=== PATIENT | male | born 1945 | race Caucasian/White ===

== ENCOUNTER 2019-04-25 13:49 | Emergency (ER) | payer MEDICARE, SELFPAY ==
[2019-04-25 13:52] VITALS: BP 137/71; PULSE 73; RESP 18; TEMP 36.4; O2SAT 96
--- NOTE | 2019-04-25 17:14 | DI.US.S_ITS ---
PROCEDURE: US PERIPH VENOUS UP EXTREM RT INDICATIONS: ATRAUMATIC PAIN RIGHT UPPER ARM TECHNIQUE: Real-time imaging, as well as color and pulse Doppler interrogation, was performed of the right upper extremity deep veins from the inferior neck to the antecubital fossa. COMPARISON: None. FINDINGS: The internal jugular vein, visualized portions of the subclavian vein, axillary, and brachial veins are free of intraluminal thrombus. Where physically possible, the veins are normally compressible. Color and pulse Doppler demonstrate normal intraluminal flow, with expected phasicity and pulsatility. Additional scanning of the cephalic and basilic veins of the superficial system demonstrate normal compressibility, without thrombus. 4 x 1.1 x 3 cm echogenic area is seen in right upper arm subcutaneous soft tissue corresponding to patient's reported area of pain and palpable lump. IMPRESSION: 1. No evidence of DVT in visualized right upper extremity veins. 2. Finding is suggestive of a 4 x 1.1 x 3 cm lipoma in right upper arm at patient's reported area of pain and palpable lump. Dictated by: Jett Alvarez M.D. on 04/25/2019 at 18:03 Approved by: Jett Alvarez M.D. on 04/25/2019 at 18:04
[2019-04-25 17:36] LABS: Add Manual Diff / Slide Review NO; Basophils Absolute Auto 0 /uL (0-100); Basophils Percent Auto 0.4 % (0-2); Eosinophils Absolute Auto 200 /uL (0-450); Eosinophils Percent Auto 3.5 % (2-4); Hematocrit 42.7 % (41-53); Hemoglobin 14.5 g/dL (13.5-17.5); Lymphocytes Absolute Auto 1400 /uL (1100-4500); Lymphocytes Percent Auto 19.4 % (25-40); Mean Corpuscular HGB Conc 33.9 % (30-36); Mean Corpuscular Hemoglobin 30.8 PG (26-34); Monocytes Absolute Auto 600 /uL (0-900); Monocytes Percent Auto 8.1 % (3-14); Neutrophils Absolute Auto 4800 /uL (1500-7000); Neutrophils Percent Auto 68.6 % (50-75); Platelet Count 190 X10^3/uL (150-400); Red Blood Cell Count 4.69 X10^6/uL (4.5-5.9); Red Cell Distribution Width 13.8 % (11.6-14.8)
[2019-04-25 17:44] LABS: Prothrombin Time 11.3 SECONDS (10.1-12.7)
[2019-04-25 17:47] LABS: Alanine Aminotransferase 24 IU/L (21-72); Albumin 4.6 g/dL (3.5-5.0); Albumin Globulin Ratio 1.5 (1.0-2.8); Alkaline Phosphatase 60 U/L (38-126); Aspartate Aminotransferase 27 IU/L (17-59); Bilirubin Total 0.4 mg/dL (0.2-1.3); Blood Urea Nitrogen 18 mg/dL (9-20); Calcium 9.4 mg/dL (8.4-10.2); Carbon Dioxide 30 mmol/L (22-32); Chloride 102 mmol/L (98-107); Creatine Kinase 68 U/L (55-170); Estimated Glomerular Filt Rate > 60.0 mL/min (>60); Globulin 3.1 g/dL (1.7-4.1); Glucose 106 mg/dL (80-110); HEMOLYSIS < 15 (0-50); PTT Partial Thromboplastin Tim 31 SECONDS (26.4-36.2); Potassium 3.7 mmol/L (3.4-5.1); Sodium 141 mmol/L (137-145); Total Protein 7.7 g/dL (6.3-8.2)
--- NOTE | 2019-04-25 18:47 | ED_ITS ---
HPI - Extremity Problem <NANNETTE Barnes - Last Filed: 04/25/19 18:55> General Chief complaint: Extremity Problem,Nontraumatic Stated complaint: severe right arm pain x3 weeks Time Seen by Provider: 04/25/19 17:09 Source: patient and family Mode of arrival: ambulatory Limitations: no limitations History of Present Illness HPI Narrative: The patient is a 74-year-old male with history of hypercholesterolemia and hypertension who presents with chief complaint of right arm pain. Denies any trauma. He states that he was on amlodipine for 1 week, which prompted the start of his right upper arm pain. He has taken Tylenol home. He has not applied ice or heat. He denies any trauma. Denies any numbness or tingling. States he has good strength in his hand. Related Data Home Medications Medication Instructions Recorded Confirmed simvastatin 10 mg tablet 10 mg PO BEDTIME 10/06/18 10/06/18 Previous Rx's Medication Instructions Recorded ketorolac 10 mg PO Q4-6H PRN 2 Days #8 tab 04/25/19 Allergies Allergy/AdvReac Type Severity Reaction Status Date / Time No Known Drug Allergies Allergy Verified 10/06/18 13:23 Review of Systems <NANNETTE Barnes - Last Filed: 04/25/19 18:55> Review of Systems GENERAL: Denies chills, fatigue, malaise, fever, sweats. HEENT: Denies sinus pain, ear pain, sore throat, difficulty swallowing, dizziness. RESPIRATORY: Denies dyspnea, cough, wheezing, hemoptysis, sputum. CARDIOVASCULAR: Denies chest pain, palpitations, orthopnea, edema, GASTROINTESTINAL: Denies nausea, vomiting, abdominal pain, diarrhea, constipation, melena. : Denies dysuria, frequency, incontinence, hematuria, urinary retention. MUSCULOSKELETAL: See HPI SKIN: Denies rash, skin lesions, or other NEUROLOGIC: Denies weakness, headache, numbness, change in speech, confusion, seizures, incoordination. PSYCHIATRIC: No concerning psychosocial issues. 12 point review of systems is negative except for those stated above PFSH <NANNETTE Barnes - Last Filed: 04/25/19 18:55> Medical History (Updated 04/25/19 @ 18:53 by Sophie Labette, [employer]IOR [employer]ICER[employer]) Hypertension (Acute) Social History Smoking Status: Never smoker Social History Smoking Status: Never smoker Exam <NANNETTE Barnes - Last Filed: 04/25/19 18:55> Narrative Exam Narrative: GENERAL: This is a well-nourished, well-developed patient, in no acute distress HEAD: Atraumatic. Normocephalic. No temporal or scalp tenderness. EYES: Pupils equal round and reactive. Extraocular motions intact. No scleral icterus. No injection or drainage. ENT: Nose without bleeding, purulent drainage or septal hematoma. Throat without erythema, tonsillar hypertrophy or exudate. Uvula midline. Airway patent. NECK: Trachea midline. No JVD or lymphadenopathy. Supple, nontender, no meningeal signs. CARDIOVASCULAR: Regular rate and rhythm RESPIRATORY: No cough. No increased respiratory effort. No accessory muscle use. EXTREMITIES: Dental pain to palpation right upper arm. Full range of motion noted bilateral shoulders. Positive radial pulses bilaterally. BACK: Nontender without deformity or crepitance. No flank tenderness. NEURO: AOx3. SKIN: No rash or erythema. No erythema ecchymosis laceration contusion etc right upper arm Initial Vital Signs Initial Vital Signs: Vital Signs Temperature 97.6 F 04/25/19 13:52 Pulse Rate 73 04/25/19 13:52 Respiratory Rate 18 04/25/19 13:52 Blood Pressure 137/71 04/25/19 13:52 Pulse Oximetry 96 04/25/19 13:52 <Sophie Sandhu DO - Last Filed: 04/25/19 19:36> Initial Vital Signs Initial Vital Signs: Vital Signs Temperature 97.6 F 04/25/19 13:52 Pulse Rate 73 04/25/19 13:52 Respiratory Rate 18 04/25/19 13:52 Blood Pressure 137/71 04/25/19 13:52 Pulse Oximetry 96 04/25/19 13:52 Course <NANNETTE Barnes - Last Filed: 04/25/19 18:55> Orders Ordered: ED Orders 04/25/19 17:14 US periph venous up extrem rt Stat 04/25/19 17:30 CKMB Panel (CK + CKMB) Stat Complete Blood Count AUTO DIFF Stat Comprehensive Metabolic Panel Stat Partial Thromboplastin Time Stat Prothrombin Time INR Stat Discontinued Medications Ketorolac Tromethamine (Toradol) 60 mg IM NOW ONE Stop: 04/25/19 18:30 Last Admin: 04/25/19 18:48 Dose: 60 mg Vital Signs - 8 hr 04/25/19 13:52 04/25/19 18:52 Temperature 97.6 F Pulse Rate 73 61 Respiratory Rate 18 18 Blood Pressure 137/71 Blood Pressure [Left Arm] 159/78 H Pulse Oximetry 96 98 <Sophie Sandhu DO - Last Filed: 04/25/19 19:36> Orders Ordered: ED Orders 04/25/19 17:14 US periph venous up extrem rt Stat 04/25/19 17:30 CKMB Panel (CK + CKMB) Stat Complete Blood Count AUTO DIFF Stat Comprehensive Metabolic Panel Stat Partial Thromboplastin Time Stat Prothrombin Time INR Stat Discontinued Medications Ketorolac Tromethamine (Toradol) 60 mg IM NOW ONE Stop: 04/25/19 18:30 Last Admin: 04/25/19 18:48 Dose: 60 mg Vital Signs - 8 hr 04/25/19 13:52 04/25/19 18:52 Temperature 97.6 F Pulse Rate 73 61 Respiratory Rate 18 18 Blood Pressure 137/71 Blood Pressure [Left Arm] 159/78 H Pulse Oximetry 96 98 MDM - Extremity (Nontraumatic) <CAROLE Barnes-BC - Last Filed: 04/25/19 18:55> Lab Data Result diagrams: 04/25/19 17:30 04/25/19 17:30 Lab Results 04/25/19 04/25/19 04/25/19 Range/Units 17:30 17:30 17:30 WBC 7.0 (4.5-11.0) X10^3/uL RBC 4.69 (4.5-5.9) X10^6/uL Hgb 14.5 (13.5-17.5) g/dL Hct 42.7 (41-53) % MCV 91.0 (80-100) fL MCH 30.8 (26-34) PG MCHC 33.9 (30-36) % RDW 13.8 (11.6-14.8) % Plt Count 190 (150-400) X10^3/uL Neut % (Auto) 68.6 (50-75) % Lymph % (Auto) 19.4 L (25-40) % [place] % (Auto) 8.1 (3-14) % Eos % (Auto) 3.5 (2-4) % Baso % (Auto) 0.4 (0-2) % Neut # (Auto) 4800 (2776-1920) /uL Lymph # (Auto) 1400 (1286-7507) /uL [place] # (Auto) 600 (0-900) /uL Eos # (Auto) 200 (0-450) /uL Baso # (Auto) 0 (0-100) /uL PT 11.3 (10.1-12.7) SECONDS INR 1.0 (0.9-1.3) APTT 31 (26.4-36.2) SECONDS Sodium 141 (137-145) mmol/L Potassium 3.7 (3.4-5.1) mmol/L Chloride 102 (98-107) mmol/L Carbon Dioxide 30 (22-32) mmol/L BUN 18 (9-20) mg/dL Creatinine 0.90 (0.66-1.25) mg/dL Estimated GFR > 60.0 (>60) mL/min BUN/Creatinine Ratio 20.0 (6-22) Glucose 106 (80-110) mg/dL Calcium 9.4 (8.4-10.2) mg/dL Total Bilirubin 0.4 (0.2-1.3) mg/dL AST 27 (17-59) IU/L ALT 24 (21-72) IU/L Alkaline Phosphatase 60 (38-126) U/L Total Creatine Kinase 68 (55-170) U/L CK-MB (CK-2) TNP CK-MB (CK-2) Rel Index TNP Total Protein 7.7 (6.3-8.2) g/dL Albumin 4.6 (3.5-5.0) g/dL Globulin 3.1 (1.7-4.1) g/dL Albumin/Globulin Ratio 1.5 (1.0-2.8) Imaging Data Venous US: Radiologist's impression: [address] [id number] Ultrasound Report Signed Patient: Scott Fierro FMR#: [id number] : 1945Acct:[id number] Age/Sex: 74 / MDate of Service: 04/25/19 Loc: ED Accession Number: [id number] Procedure: US periph venous up extrem rt Ordering Provider: Sophie Green [employer]IOR [employer]ICER[employer] PROCEDURE: US PERIPH VENOUS UP EXTREM RT INDICATIONS: ATRAUMATIC PAIN RIGHT UPPER ARM TECHNIQUE: Real-time imaging, as well as color and pulse Doppler interrogation, was performed of the right upper extremity deep veins from the inferior neck to the antecubital fossa. COMPARISON: None. FINDINGS: The internal jugular vein, visualized portions of the subclavian vein, axillary, and brachial veins are free of intraluminal thrombus. Where physically possible, the veins are normally compressible. Color and pulse Doppler demonstrate normal intraluminal flow, with expected phasicity and pulsatility. Additional scanning of the cephalic and basilic veins of the superficial system demonstrate normal compressibility, without thrombus. 4 x 1.1 x 3 cm echogenic area is seen in right upper arm subcutaneous soft tissue corresponding to patient's reported area of pain and palpable lump. IMPRESSION: 1. No evidence of DVT in visualized right upper extremity veins. 2. Finding is suggestive of a 4 x 1.1 x 3 cm lipoma in right upper arm at patient's reported area of pain and palpable lump. Dictated by: Jett Alvarez M.D. on 04/25/2019 at 18:03 Approved by: Jett Alvarez M.D. on 04/25/2019 at 18:04 [facility] Narrative Medical decision making narrative: The patient is a 74-year-old male who presents with right upper arm pain. Given his statin use, I did check a CK to rule out rhabdo. He is neurovascular intact bilaterally. Ultrasound shows a probable lipoma. Patient was given Toradol in the emergency department. D iscussed at length follow up with primary care provider as well as come back to the emergency department for any acute concerns such as chest pain shortness of breath etc <Sophie Sandhu, - Last Filed: 04/25/19 19:36> Lab Data Lab Results 04/25/19 04/25/19 04/25/19 Range/Units 17:30 17:30 17:30 WBC 7.0 (4.5-11.0) X10^3/uL RBC 4.69 (4.5-5.9) X10^6/uL Hgb 14.5 (13.5-17.5) g/dL Hct 42.7 (41-53) % MCV 91.0 (80-100) fL MCH 30.8 (26-34) PG MCHC 33.9 (30-36) % RDW 13.8 (11.6-14.8) % Plt Count 190 (150-400) X10^3/uL Neut % (Auto) 68.6 (50-75) % Lymph % (Auto) 19.4 L (25-40) % [place] % (Auto) 8.1 (3-14) % Eos % (Auto) 3.5 (2-4) % Baso % (Auto) 0.4 (0-2) % Neut # (Auto) 4800 (0612-4643) /uL Lymph # (Auto) 1400 (7167-0219) /uL [place] # (Auto) 600 (0-900) /uL Eos # (Auto) 200 (0-450) /uL Baso # (Auto) 0 (0-100) /uL PT 11.3 (10.1-12.7) SECONDS INR 1.0 (0.9-1.3) APTT 31 (26.4-36.2) SECONDS Sodium 141 (137-145) mmol/L Potassium 3.7 (3.4-5.1) mmol/L Chloride 102 (98-107) mmol/L Carbon Dioxide 30 (22-32) mmol/L BUN 18 (9-20) mg/dL Creatinine 0.90 (0.66-1.25) mg/dL Estimated GFR > 60.0 (>60) mL/min BUN/Creatinine Ratio 20.0 (6-22) Glucose 106 (80-110) mg/dL Calcium 9.4 (8.4-10.2) mg/dL Total Bilirubin 0.4 (0.2-1.3) mg/dL AST 27 (17-59) IU/L ALT 24 (21-72) IU/L Alkaline Phosphatase 60 (38-126) U/L Total Creatine Kinase 68 (55-170) U/L CK-MB (CK-2) TNP CK-MB (CK-2) Rel Index TNP Total Protein 7.7 (6.3-8.2) g/dL Albumin 4.6 (3.5-5.0) g/dL Globulin 3.1 (1.7-4.1) g/dL Albumin/Globulin Ratio 1.5 (1.0-2.8) Discharge Plan Departure Patient Disposition: Home Clinical Impression: Lipoma of arm Qualifiers: Laterality: right Qualified Code(s): D17.21 - Benign lipomatous neoplasm of skin and subcutaneous tissue of right arm Discharge Date/Time: 04/25/19 19:04 Interventions: ED Discharge Assessment Last Done: 04/25/19 19:04 Instructions: Lipoma Activity Restrictions/Additional Instructions: Your ultrasound is suggestive of a lipoma, which is a fatty tumor Please follow up with your PCP Do not combine the rx NSAID with any other NSAIDs Come back to the ER for any acute concerns Prescriptions: New ketorolac 10 mg tablet 10 mg PO Q4-6H PRN (Reason: pain) 2 Days Qty: 8 RF: 0 No Action simvastatin 10 mg tablet 10 mg PO BEDTIME RF: 0 Referrals: [facility] [Outside] <Sophie Sandhu DO - Last Filed: 04/25/19 19:36> Cosign ED Attending Cosignature Attestation: I was immediately available in the department for consultation. This documentation has been reviewed and I agree with assessment and plan. Supervised by Sophie Sandhu DO
[2019-04-25] MEDS: KETOROLAC 60 MG/2 ML VIAL IM (18:48)
[2019-04-25 18:52] VITALS: BP 159/78; PULSE 61; RESP 18; O2SAT 98
== END 2019-04-25 19:04 | disposition home or self-care (01) ==
PROVIDERS: Emergency Provider Nurse Practitioner Family
DX: D17.21 Benign lipomatous neoplasm of skin and subcutaneous tissue of right arm (principal); Z79.899 Other long term (current) drug therapy
CPT/HCPCS: 36415; 80053; 82550; 85025; 85610; 85730; 93971; 96372; 99282; 99284; J1885

== ENCOUNTER 2020-09-28 10:26 | Emergency (ER) | payer MEDICARE, SELFPAY ==
[2020-09-28 10:35] VITALS: BP 152/70; PULSE 88; RESP 18; O2SAT 99
--- NOTE | 2020-09-28 10:52 | ED.ALLEREA ---
HPI - Allergic Reaction General Chief complaint: Allergic Reaction Stated complaint: swelling in face poss reaction from shingles shot Time Seen by Provider: 09/28/20 10:39 Source: patient Mode of arrival: Ambulatory Limitations: no limitations History of Present Illness HPI narrative: Patient is a 75-year-old male who presents with facial swelling. He received his shingles vaccine 6 days ago. He did experience some illness symptoms of body aches and fatigue. YESTERDAY HE HAD SOME LEFT-SIDED FACIAL SWELLING HAD SOME LIP SWELLING HE SAYS LIPS WERE QUITE BIG. HE TOOK TYLENOL IT SEEMED TO IMPROVE. This morning he woke up need significant swelling on the right side. He has no tongue swelling no lip swelling no voice change able to manage his own secretions he has no difficulty breathing. He has no dental pain. He previously had a shingles vaccine a number of months ago and did not have this reaction. He has no hives. Related Data Home Medications Medication Instructions Recorded Confirmed simvastatin 10 mg tablet 10 mg PO BEDTIME 10/06/18 10/06/18 Previous Rx's Medication Instructions Recorded prednisone 40 mg PO DAILY #10 tab 09/28/20 Allergies Allergy/AdvReac Type Severity Reaction Status Date / Time No Known Drug Allergies Allergy Verified 10/06/18 13:23 Review of Systems Review of Systems Narrative: GENERAL: Denies chills, fatigue, malaise, fever, sweats, travel HEENT: See HPI RESPIRATORY: Denies dyspnea, cough, wheezing, hemoptysis, sputum. CARDIOVASCULAR: Denies chest pain, palpitations, orthopnea, edema GASTROINTESTINAL: Denies nausea, vomiting, abdominal pain, diarrhea, constipation, melena. : Denies dysuria, frequency, incontinence, hematuria, urinary retention, flank pain. MUSCULOSKELETAL: Denies weakness, joint pain, or bony pain SKIN: No rash, no erythema, no pruritus NEUROLOGIC: Denies weakness, dizziness, headache, numbness, change in speech, confusion PSYCHIATRIC: No concerning psychosocial issues. 12 point review of systems is negative except for those stated above and HPI Patient History Medical History Hypertension (Acute) Social History Smoking Status: Never smoker Smoking Status: Never smoker Exam Initial Vital Signs Initial Vital Signs: Vital Signs Pulse Rate 88 09/28/20 10:35 Respiratory Rate 18 09/28/20 10:35 Blood Pressure 152/70 H 09/28/20 10:35 Pulse Oximetry 99 09/28/20 10:35 GENERAL: Well-appearing, well-nourished and in no acute distress. HEENT: Head atraumatic,EOMI, pupils reactive, right-sided facial swelling. No dental cavity or abscess no no erythema CARDIOVASCULAR: Regular rate and rhythm without murmurs, rubs or gallops. RESPIRATORY: Breath sounds equal bilaterally, no wheezes rales or rhonchi. EXTREMITIES: Normal range of motion, no clubbing or edema. Neurovascularly intact NEUROLOGICAL: Alert and oriented x4 SKIN: Warm, dry, no laceration, no petechiae, no rashes or lesions. Course Vital Signs Vital signs: Vital Signs - 8 hr 09/28/20 10:35 Pulse Rate 88 Respiratory Rate 18 Blood Pressure 152/70 H Pulse Oximetry 99 MDM - Allergic Reaction MDM Narrative Medical decision making narrative: On sure exactly what his reaction is possibly to shingles vaccine. No anaphylaxis at this time he has no sign of infection. Will put him on Benadryl and prednisone. Discharge Plan Departure Patient Disposition: Home Clinical Impression: Allergic reaction Instructions: DI for General Allergic Reactions Activity Restrictions/Additional Instructions: *You have been diagnosed with allergic reaction *What to do: Monitor swelling. At this time he does not have anaphylaxis. *Continue to take medications as directed Prednisone 40 mg once a day for 5 days-->SENT TO [facility] IN [place] Benadryl 25 mg every 6 hours if needed *Follow up with your primary care provider in 2-3 days *Return to ER if you should have tongue swelling lip swelling voice changing, difficulty swallowing, difficulty breathing or any new, worsening or concerning symptoms Prescriptions: New prednisone 20 mg tablet 40 mg PO DAILY Qty: 10 RF: 0 No Action simvastatin 10 mg tablet 10 mg PO BEDTIME RF: 0
== END 2020-09-28 11:08 | disposition home or self-care (01) ==
PROVIDERS: Emergency Provider Emergency Medicine
DX: T78.40XA Allergy, unspecified, initial encounter (principal); T50.Z95A Adverse effect of other vaccines and biological substances, initial encounter
CPT/HCPCS: 99281

== ENCOUNTER 2023-04-05 17:56 | Emergency (ER) | payer OTHER, MEDICARE, SELFPAY ==
[2023-04-05 18:20] VITALS: BP 177/72; PULSE 68; RESP 17; TEMP 36.6; O2SAT 98; BMI 30.1
--- NOTE | 2023-04-05 21:21 | ED.WOUNDLAC ---
HPI - Wound/Laceration General Chief Complaint: Wound/Laceration Stated Complaint: Tosin quezada, bleeding, Time Seen by Provider: 04/05/23 20:08 Source: patient Mode of arrival: Ambulatory History of Present Illness HPI narrative: 78-year-old gentleman with a history of hyperlipidemia was doing some woodworking at home and 1 of the tools ended up causing a laceration to the palmar surface of his index finger left hand. There is a small bit of arterial bleeding can be controlled with pressure and he is otherwise neurovascularly intact. This does not involve the nail bed, and there is no tendon involvement. No concern for bony injury. Related Data Home Medications Medication Instructions Recorded Confirmed simvastatin 10 mg tablet 10 mg PO BEDTIME 10/06/18 04/05/23 Allergies Allergy/AdvReac Type Severity Reaction Status Date / Time No Known Drug Allergies Allergy Verified 04/05/23 18:22 Review of Systems Review of Systems Narrative: Pertinent positive and negative findings as per HPI Patient History Medical History (Updated 04/05/23 @ 21:28 by Glendy Celaya MD) Hypertension Social History Smoking Status: Never smoker Smoking Status: Never smoker alcohol intake frequency: a few times a month Substance Use Type: does not use Exam Initial Vital Signs Initial Vital Signs: Vital Signs Temperature 98 F 04/05/23 18:20 Pulse Rate 68 04/05/23 18:20 Respiratory Rate 17 04/05/23 18:20 Blood Pressure 177/72 H 04/05/23 18:20 Pulse Oximetry 98 04/05/23 18:20 Oxygen Delivery Method Room Air 04/05/23 18:20 General: Alert appropriate in no acute distress Respiratory: Able to speak in full sentences, no obvious respiratory distress Skin: No obvious rashes, warm and dry Neurologic: Grossly intact no obvious asymmetries or abnormalities Psych: appropriate insight and affect, cooperative Extremity: 3 cm laceration over the distal phalanx palmar surface index finger left hand. Procedures Laceration Repair Index finger left hand: Time of procedure: 21:24 Site: hand Side (If applicable): left Size (cm): 3 Description: linear Depth: simple, single layer Local Anesthetic: lidocaine 1% Amount of anesthesia used (mL): 3 Pre-repair: wound explored, irrigated extensively and deep structures intact Skin layer closed with: nylon Skin layer suture size: 4-0 Number of sutures: 4 Technique: simple, interrupted and horizontal mattress Course Orders Ordered: Discontinued Medications Bacitracin (Bacitracin Oint 0.9 Gm Pckt) 1 applic TOP NOW ONE Stop: 04/05/23 20:50 Lidocaine HCl (Lidocaine 1% (Pf) 2ml) 4 ml INJ NOW ONE Stop: 04/05/23 20:50 Vital Signs Vital signs: Vital Signs - 8 hr 04/05/23 18:20 Temperature 98 F Pulse Rate 68 Respiratory Rate 17 Blood Pressure 177/72 H Pulse Oximetry 98 Oxygen Delivery Method Room Air MDM - Wound/Laceration MDM Narrative Medical decision making narrative: CC: Finger laceration, acute self-limited Data collected from: patient, Social determinants of health that may influence the patients condition: Patient does quite a bit of woodworking Differential considered: Simple laceration, complex laceration, tendon involvement, bone involvement Exam documented above, pertinent findings include: No evidence of deeper tissue or bone involvement. Simple laceration, clean Treatments: 3 simple sutures placed and 1 horizontal mattress for hemostatic control over the small arterial that was still bleeding Discussion: 78-year-old gentleman with simple laceration to his left index finger. He is right-handed. Sutured without complication. It is a clean wound I do not think that antibiotics are going to be appropriate at this time however I did recommend continued antibiotic ointment with a dressing over the wound. Last tetanus shot was a year ago. Sutures out on or around April 12. Questions are answered he is safe for discharge home Discharge Plan Departure Patient Disposition: Home Clinical Impression: Laceration Instructions: DI for Laceration Repair Activity Restrictions/Additional Instructions: Thank you for coming in today You have for stitches that will need to be removed on or about April 12. Please keep the wound covered with a Band-Aid and a small amount of antibiotic ointment. If you notice any increased swelling, drainage, redness or red streaks leading up for the wound you do need to be re-evaluated immediately. I hope you heal quickly Prescriptions: No Action simvastatin 10 mg tablet 10 mg PO BEDTIME Stand Alone Forms: Patient Portal/API
[2023-04-05] MEDS: BACITRACIN OINT 0.9 GM PCKT 1 APPLIC TOP (21:35)
[2023-04-05 21:36] VITALS: BP 191/88; PULSE 60; RESP 18; O2SAT 97
[2023-04-05] MEDS: LIDOCAINE 1% (PF) 2ML 4 ML INJ (21:44)
[2023-04-05 21:45] VITALS: BP 193/86
== END 2023-04-05 21:46 | disposition home or self-care (01) ==
PROVIDERS: Emergency Provider Emergency Medicine
DX: S61.211A Laceration without foreign body of left index finger without damage to nail, initial encounter (principal); W45.8XXA Other foreign body or object entering through skin, initial encounter
CPT/HCPCS: 12002; 99283